=== PATIENT | female | born 2000 | race Caucasian/White ===

== ENCOUNTER 2021-02-22 13:10 | Emergency (ER) | payer OTHER ==
[2021-02-22 14:07] LABS: HEMOGLOBIN 13.3 gm/dl (12.3-15.3); RED BLOOD COUNT 4.22 M/UL (4.00-5.10); WHITE BLOOD COUNT 4.7 K/UL (4.5-11.0)
[2021-02-22 14:23] LABS: BUN/CREATININE RATIO 12 (0-10)
== END 2021-02-22 17:36 | disposition home or self-care (01) ==
LOC: ER1 13:10
PROVIDERS: Physician Assistant
DX: O99.891 Other specified diseases and conditions complicating pregnancy (principal); R10.32 Left lower quadrant pain; O99.331 Smoking (tobacco) complicating pregnancy, first trimester; F17.210 Nicotine dependence, cigarettes, uncomplicated; Z3A.01 Less than 8 weeks gestation of pregnancy
CPT/HCPCS: 76817; 80053; 81001; 83690; 84702; 85025; 87077; 87086; 87186; 99284

== ENCOUNTER 2021-07-10 09:02 | Outpatient (CLI) | payer OTHER | END 2021-07-10 13:21 | disposition home or self-care (01) | LOC: GENOP 09:02 | PROVIDERS: Obstetrics & Gynecology | DX: O99.891 Other specified diseases and conditions complicating pregnancy (principal); R10.9 Unspecified abdominal pain; N89.8 Other specified noninflammatory disorders of vagina; O36.8120 Decreased fetal movements, second trimester, not applicable or unspecified; O99.332 Smoking (tobacco) complicating pregnancy, second trimester; F17.210 Nicotine dependence, cigarettes, uncomplicated; Z3A.27 27 weeks gestation of pregnancy | CPT/HCPCS: 59025; 80307; 81001; 82731; 83518; 96360; 96372; J3105; J7120 ==

== ENCOUNTER 2021-08-05 17:35 | Outpatient (CLI) | payer OTHER ==
[2021-08-05 18:52] LABS: HEMOGLOBIN 11.8 gm/dl (12.3-15.3); RED BLOOD COUNT 3.6 M/UL (4.00-5.10); WHITE BLOOD COUNT 12.8 K/UL (4.5-11.0)
[2021-08-05 19:45] LABS: BUN/CREATININE RATIO 13 (0-10)
== END 2021-08-05 23:11 | disposition short-term general hospital (02) ==
LOC: GENOP 17:35
PROVIDERS: Obstetrics & Gynecology
DX: O47.03 False labor before 37 completed weeks of gestation, third trimester (principal); O44.03 Complete placenta previa NOS or without hemorrhage, third trimester; O99.343 Other mental disorders complicating pregnancy, third trimester; O99.513 Diseases of the respiratory system complicating pregnancy, third trimester; F32.A Depression, unspecified; J45.909 Unspecified asthma, uncomplicated; O99.333 Smoking (tobacco) complicating pregnancy, third trimester; F17.210 Nicotine dependence, cigarettes, uncomplicated; O23.43 Unspecified infection of urinary tract in pregnancy, third trimester; N39.0 Urinary tract infection, site not specified; O99.353 Diseases of the nervous system complicating pregnancy, third trimester; G43.909 Migraine, unspecified, not intractable, without status migrainosus; Z3A.31 31 weeks gestation of pregnancy
CPT/HCPCS: 36415; 59025; 80053; 81001; 85025; 96360; 96361; 96366; 96367; 96372; J0702; J3105; J3475; J7120

== ENCOUNTER 2021-08-24 06:21 | Outpatient (CLI) | payer OTHER ==
[2021-08-24 07:42] LABS: RED BLOOD COUNT 3.17 M/UL (4.00-5.10); WHITE BLOOD COUNT 7.3 K/UL (4.5-11.0)
== END 2021-08-24 11:06 | disposition other institution (70) ==
LOC: GENOP 06:21
PROVIDERS: Obstetrics & Gynecology
DX: O44.13 Complete placenta previa with hemorrhage, third trimester (principal); O99.313 Alcohol use complicating pregnancy, third trimester; O99.333 Smoking (tobacco) complicating pregnancy, third trimester; O99.323 Drug use complicating pregnancy, third trimester; F17.210 Nicotine dependence, cigarettes, uncomplicated; Z3A.33 33 weeks gestation of pregnancy; Z20.822 Contact with and (suspected) exposure to COVID-19
CPT/HCPCS: 76815; 82962; 85025; 85384; 85610; 85730; 86850; 86900; 86901; 96360; 96361; U0002